=== PATIENT | female | born 1980 | race African-American/Black ===

== ENCOUNTER 2016-07-05 12:48 | Emergency (ER) | payer BC ==
[~2016-07-05] VITALS: Ht 165.1 cm; Wt 63.5 kg
--- NOTE | ~2016-07-05 | EKG ---
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
[~2016-07-05 12:48] MED LIST: AMOXICILLIN500 M1 PO; LORTABELXR PO; PERCOCET 5-3251 EACH PO; TERAZOL 320 GM VG
[2016-07-05 14:19] LABS: ABSOLUTE NEUTROPHILS 2.9 thou/uL (1.4-8.2); BASOPHILS 0.8 % (0.0-2.0); EOSINOPHILS 0.3 % (0.0-3.0); HEMATOCRIT 42.1 % (37.0-47.0); HEMOGLOBIN 14.8 gm/dL (12.0-15.0); LYMPHOCYTES 49.6 % (24.0-44.0); MCH 31.4 pg (26.0-34.0); MCHC 35.1 % (28.0-37.0); MCV 89.3 fL (80.0-100.0); MONOCYTES 5.7 % (1.0-8.0); PLATELET COUNT 376 thou/uL (150-400); POLYS 43.6 % (36.0-66.0); RBC 4.72 mil/uL (4.20-5.00); RDW 13.2 % (10.5-14.5); WBC 6.6 thou/uL (4.0-11.0)
[2016-07-05 14:20] LABS: MANUAL DIFF NO
[2016-07-05 16:09] LABS: ANION GAP 11 mmol/L (7-16); BUN 7 mg/dL (7-18); CALCIUM 9.3 mg/dL (8.5-10.1); CHLORIDE 104 mmol/L (98-107); CO2 24 mmol/L (21-32); CREATININE 0.6 mg/dL (0.6-1.3); GLUCOSE 90 mg/dL (70-99); SODIUM 139 mmol/L (136-145); TROPONIN-I < 0.04 ng/mL (<0.04-0.07)
[2016-07-05 16:10] LABS: POTASSIUM 5.4 mmol/L (3.5-5.1)
[2016-07-05] MEDS ORDERED: NAPROSYN500 MG PO (16:14)
[2016-07-05 16:45] VITALS: BP 114/74
== END 2016-07-05 16:48 | disposition home or self-care (01) ==
LOC: ER 12:48
PROVIDERS: Physician Assistant
DX: R07.89 Other chest pain (principal); Z98.890 Other specified postprocedural states

== ENCOUNTER 2018-04-25 09:45 | Emergency (ER) | payer BC ==
[~2018-04-25] VITALS: Ht 165.1 cm; Wt 95.3 kg
[~2018-04-25 09:45] MED LIST changes: +NAPROSYN500 MG PO; +PRILOSEC OTC20 MG PO
== END 2018-04-25 11:10 | disposition home or self-care (01) ==
LOC: ER 09:45
DX: J02.9 Acute pharyngitis, unspecified (principal)

== ENCOUNTER 2018-09-23 10:41 | Emergency (ER) | payer BC ==
[~2018-09-23] VITALS: Ht 162.6 cm; Wt 96.2 kg
[2018-09-23] MEDS ORDERED: MOBIC7.5 MG PO (11:10)
[2018-09-23 12:07] VITALS: BP 129/77
== END 2018-09-23 12:08 | disposition home or self-care (01) ==
LOC: ER 10:41
DX: S83.8X2A Sprain of other specified parts of left knee, initial encounter (principal); V27.0XXA Motorcycle driver injured in collision with fixed or stationary object in nontraffic accident, initial encounter; Y93.89 Activity, other specified; Y92.89 Other specified places as the place of occurrence of the external cause; Y99.8 Other external cause status

== ENCOUNTER → 2020-10-28 | Emergency (ER) | payer BC ==
[~2020-10-28] VITALS: Ht 165.1 cm; Wt 93.4 kg
[~2020-10-28] MED LIST changes: +MOBIC7.5 MG PO
[2020-10-28 13:31] VITALS: BP 159/89
== END ==
LOC: ER 11:48
DX: M25.531 Pain in right wrist (principal); M79.642 Pain in left hand; Y08.89XA Assault by other specified means, initial encounter; Y93.89 Activity, other specified; Y92.89 Other specified places as the place of occurrence of the external cause; Y99.8 Other external cause status